=== PATIENT | female | born 1960 | race Caucasian/White ===

== ENCOUNTER 2018-07-24 17:28 | Emergency (ER) | END 2018-07-24 19:31 | disposition home or self-care (01) ==

== ENCOUNTER 2018-10-20 14:59 | Emergency (ER) | payer MEDICARE, OTHER ==
[~2018-10-20] VITALS: Ht 167.6 cm; Wt 56.5 kg
[~2018-10-20 14:59] MED LIST: CLOT30CR24 TOP; HC30CR25 TOP; MUPI22OI2 TOP
[2018-10-20 15:02] VITALS: BP 136/80; PULSE 107; RESP 18; Ht 167.6 cm; Wt 56.5 kg
--- NOTE | 2018-10-20 15:55 | ERD ---
ER Documentation Chief Complaint Chief Complaint cough, runny nose, fevers-cold like symptoms x 2 wks HPI 58-year-old female, sent to the emergency department, complaining of 2 weeks with persistent upper respiratory symptoms including cough, worse at night, runny nose, chest congestion, headache and general malaise. The patient has been taking owlv-jcf-wenjenf medications without improvement of the symptoms. ROS All systems reviewed and are negative except as per history of present illness. Medications Home Meds Active Scripts Guaifenesin-Codeine Phosphate* (Guaifenesin* AC Cough Syrup) 473 Ml Liquid, 5 ML PO Q4H PRN for COUGH, #60 ML Prov:DEREK PICHARDO MD 10/20/18 Hydrocortisone* Topical (Hydrocortisone* Topical) 2.5%-28.3 Gm Cream..g., 1 APPLIC TOP BID, #1 TUB Prov:CANDIS TEJADA PA-C 07/24/18 Mupirocin* (Bactroban*) 2% -22 Gram Oint...g., 1 APPLIC TOP BID for 7 Days, EA Prov:CANDIS TEJADA PA-C 07/24/18 Clotrimazole* (Clotrimazole* AF) 1% - 30 Gm Cream.gm., 1 APPLIC TOP BID for 7 Days, TUB Prov:CADNIS TEJADA PA-C 07/24/18 Allergies Allergies: Coded Allergies: No Known Allergy (Unverified , 07/24/18) PMhx/Soc History of Surgery: Yes (3stents heart) Hx Cardiac Disorders: Yes (2 heart attack ) Hx Alcohol Use: No Hx Substance Use: Yes Hx Tobacco Use: Yes Smoking Status: Current every day smoker FmHx Family History: coronary disease; No diabetes Physical Exam Vitals Vital Signs Date Temp Pulse Resp B/P (MAP) Pulse Ox O2 O2 Flow FiO2 Time Delivery Rate 10/20/18 98.0 107 18 136/80 96 15:02 (98) Physical Exam Const: No acute distress Head: Atraumatic Eyes: Normal Conjunctiva ENT: Erythematous oropharynx. Normal External Ears, Nose and Mouth. Neck: Full range of motion. No meningismus. Resp: Clear to auscultation bilaterally Cardio: Regular rate and rhythm, no murmurs Abd: Soft, non tender, non distended. Normal bowel sounds Skin: No petechiae or rashes Back: No midline or flank tenderness Ext: No cyanosis, or edema Neur: Awake and alert Psych: Normal Mood and Affect Procedures/MDM Differential diagnosis include but not limited to: Respiratory infection bacterial/viral/fungal. Asthma, pneumonitis, allergies, GERD. Less likely foreign body aspiration, cardiac related, aspiration pneumonia, malignancy. Physical examination and clinical presentation consistent most likely with viral syndrome. During the ED course the patient remained stable, no new complaints. Clinical impression discussed with the patient who agrees with management. The patient is stable to be treated outpatient and will be discharged home. antibiotics not indicated at this time. some side effects of prescribed medications (headache, rash, nausea, vomiting, diarrhea, drowsiness, hypertension, interactions with other medications) were reviewed. The patient was instructed to follow up with the primary care provider in the next 48h. If symptoms persist, worsen or new symptoms develop, then patient should return to the ED immediately. Disclaimer: Inadvertent spelling and grammatical errors are likely due to EHR/dictation software use and do not reflect on the overall quality of patient care. Also, please note that the electronic time recorded on this note does not necessarily reflect the actual time of the patient encounter. Departure Diagnosis: Primary Impression: Upper respiratory infection Condition: Stable Patient Instructions: Preventing Common Respiratory Infections Additional Instructions: Thank you very much for allowing us to participate in your care. Your health and safety is our top priority at [facility]. Call your primary care doctor TOMORROW for an appointment during the next 2-4 days and bring all the information and medications prescribed. Have prescriptions filled and follow precisely the directions on the label. If the symptoms get worse and your provider is unavailable, return to the Emergency Department immediately. DEREK PICHARDO MD Oct 20, 2018 15:55
[2018-10-20] MEDS ORDERED: GUAI473L22 PO (16:00)
== END 2018-10-20 16:09 | disposition home or self-care (01) ==
LOC: FTE 14:59
DX: J06.9 Acute upper respiratory infection, unspecified (principal); F17.210 Nicotine dependence, cigarettes, uncomplicated; Z98.61 Coronary angioplasty status
CPT/HCPCS: 99282

== ENCOUNTER 2019-05-27 08:57 | Emergency (ER) | payer MEDICARE, OTHER ==
[~2019-05-27] VITALS: Ht 167.6 cm; Wt 63.0 kg
[~2019-05-27 08:57] MED LIST changes: +ALBU8.5H8 INH; +AZIT250T PO; +GUAI120S25 PO; +GUAI473L22 PO; +IBUP-1542 PO; +PROM5SYR2 PO
[2019-05-27 08:59] VITALS: BP 145/70; PULSE 90; RESP 18; Ht 167.6 cm; Wt 63.0 kg
[2019-05-27] MEDS ORDERED: KETOROLAC 30 MG INJ IM STA (09:17)
--- NOTE | 2019-05-27 11:45 | ERD ---
ER Documentation Chief Complaint Chief Complaint RT HIP /GROIN PAIN RADIATING TO RT LEG X 4 MONTHS , COLD SYMPTOMS HPI 55-year-old female presented to ED for right hip pain radiating down her right leg. Patient states the symptoms are going on for 4 months. Patient denies any traumatic injury. Patient states that she also has a chronic cough but she is a heavy smoker. Patient has a history of high blood pressure MO. Patient denies chest pain or shortness of breath at this time. Patient states she has no allergies to medication and only med she takes is for high blood pressure. Patient rates the hip pain a 6 out of 10 and states it is worse when she is walking. ROS All systems reviewed and are negative except as per history of present illness. Medications Home Meds Active Scripts Albuterol Sulfate* (Proair HFA*) 8.5 Gm Hfa.aer.ad, 2 PUFF INH Q4, #1 INHALER Prov:JIMMY FERNÁNDEZ PA-C 05/27/19 Routyspdwbp-O-Mnsjwuecjj Hb* (Guaifenesin* DM Syrup) 120 Ml Syrup, 10 ML PO Q4H PRN for COUGH for 10 Days, ML Prov:JIMMY FERNÁNDEZ PA-C 05/27/19 Ibuprofen* (Motrin*) 600 Mg Tab, 600 MG PO Q6, #30 TAB Prov:JIMMY FERNÁNDEZ PA-C 05/27/19 Promethazine HCl/Codeine (Prometh-Codein 6.25-10 mg/5 ml) 5 Ml Syrup, 5 ML PO Q6, #6 OZ Prov:AKIN RIVAS PA-C 11/14/18 Azithromycin* (Zithromax*) 250 Mg Tablet, 250 MG PO .MIGUEL ÁNGEL DIRECTED, #6 TAB TAKE 500 MG (2 TABS) THE FIRST DAY THEN 250 MG (1 TAB) DAYS 2-5 Prov:AKIN RIVAS PA-C 11/14/18 Guaifenesin-Codeine Phosphate* (Guaifenesin* AC Cough Syrup) 473 Ml Liquid, 5 ML PO Q4H PRN for COUGH, #60 ML Prov:DEREK PICHARDO MD 10/20/18 Hydrocortisone* Topical (Hydrocortisone* Topical) 2.5%-28.3 Gm Cream..g., 1 AP PLIC TOP BID, #1 TUB Prov:CANDIS TEJADA PA-C 07/24/18 Mupirocin* (Bactroban*) 2% -22 Gram Oint...g., 1 APPLIC TOP BID for 7 Days, EA Prov:TERRELLCANDIS Harrison PA-C 07/24/18 Clotrimazole* (Clotrimazole* AF) 1% - 30 Gm Cream.gm., 1 APPLIC TOP BID for 7 Days, TUB Prov:CANDIS TEJADA PA-C 07/24/18 Allergies Allergies: Coded Allergies: No Known Allergy (Unverified , 07/24/18) PMhx/Soc History of Surgery: Yes (3stents heart) Hx Cardiac Disorders: Yes (2 heart attack ) Hx Alcohol Use: No Hx Substance Use: Yes Hx Tobacco Use: Yes Smoking Status: Current every day smoker FmHx Family History: No diabetes, No coronary disease, No other Physical Exam Vitals Vital Signs Date Temp Pulse Resp B/P (MAP) Pulse Ox O2 O2 Flow FiO2 Time Delivery Rate 05/27/19 98.2 90 18 145/70 97 08:59 (95) Physical Exam GENERAL: The patient is well-appearing, well-nourished, in no acute distress HEENT: Atraumatic. Conjunctivae are pink. Pupils equal, round, and reactive to light. There is no scleral icterus. Tympanic membranes clear bilaterally. Oropharynx clear. No nystagmus or photophobia. NECK: C-spine is soft and supple. There is no meningismus. There is no cervical lymphadenopathy. CHEST: Clear to auscultation bilaterally. There are no rales, wheezes or rhonchi. HEART: Regular rate and rhythm. No murmurs, clicks, rubs or gallops. ABDOMEN:Soft, nontender and nondistended. Good bowel sounds. No rebound or guarding. No gross peritonitis. No gross organomegaly or masses. No Masters sign or McBurney point tenderness. BACK: No midline or flank tenderness. EXTREMITIES: Equal pulses bilaterally. There is no peripheral clubbing, cyanosis or edema. No focal swelling or erythema. Patient has mild pain during passive range of motion in the right leg. Straight leg raise aggravates symptoms on the right side. Patient does have full range of motion. Grossly neurovascularly intact. Results 24 hrs Current Medications Medications Dose Sig/Desiree Start Time Status Last (Trade) Ordered Route PRN Stop Time Admin Dose Reason Admin Ketorolac 30 mg ONCE STAT 05/27/19 DC 05/27/19 Tromethamine IM 09:17 09:26 (Toradol) 05/27/19 09:18 Procedures/MDM ED course: The patient was stable throughout the ED course. The patient and/or family informed of laboratory and diagnostic imaging results throughout the ED course. Medications given in ER: Toradol Patient tolerated medication well with no adverse reactions. Patient reported improvement in pain. Medical decision makin-year-old female presented to ED for right hip pain x2 months. Patient's physical exam revealed positive straight leg raise on the right side provoke sciatica symptoms. Patient is not an IV drug user she is afebrile with vitals within normal limits. Patient was given Toradol injection and upon reevaluation states an improvement in symptoms. Patient has no chest pain shortness of breath and there is no skin lesions or punctures. Patient denies dysuria or abdominal pain. At this time I have low suspicion for epidural abscess, spinal fracture, dislocation, hip fracture, kidney stones, UTI, pyelonephritis, cauda equina syndrome. patient will be treated outpatient with Motrin and follow-up care with a primary care doctor. Advised patient to make an appointment today to get in this week. Advised patient if symptoms worsen return to ER immediately. Patient is agreement treatment plan all questions were answered upon discharge Prescription for home: Motrin I have discussed with the patient proper use and common side effects to expert with the medication . I advised the patient/family to speak with the pharmacist dispensing the medication to be advised of any potential drug interactions with other medication or supplements they may be taking. Discharge: At this time, patient is stable for discharge and outpatient management. I have instructed the patient to follow-up with his\her primary care physician in 1 to 2 days. I have discussed with the patient the possibility of needing to see a specialist for further work-up and imaging studies if symptoms persist. I have instructed the patient to promptly return to the ER for any new or worsening symptoms including increased pain, fever, nausea, vomiting, weakness or LOC. The patient and\or family expressed understanding of and agreement with this plan. All questions were answered. Home care instructions were provided. Disclaimer: Inadvertent spelling and grammatical errors are likely due to EHR\dictation software use and do not reflect on the overall quality of patient care. Also, please note that the electronic time recorded on the note does not necessarily reflect the actual time of the patient encounter. Departure Diagnosis: Primary Impression: Multiple complaints Additional Impressions: Back pain Back pain location: low back pain Chronicity: chronic Back pain laterality: right Sciatica presence: with sciatica Sciatica laterality: sciatica of right side Qualified Codes: M54.41 - Lumbago with sciatica, right side; G89.29 - Other chronic pain Cough Condition: Stable Patient Instructions: Back Pain (Acute Or Chronic), Cough, Chronic, Uncertain Cause, (Adult) Referrals: [facility] YOU HAVE RECEIVED A MEDICAL SCREENING EXAM AND THE RESULTS INDICATE THAT YOU DO NOT HAVE A CONDITION THAT REQUIRES URGENT TREATMENT IN THE EMERGENCY DEPARTMENT. FURTHER EVALUATION AND TREATMENT OF YOUR CONDITION CAN WAIT UNTIL YOU ARE SEEN IN YOUR DOCTORS OFFICE WITHIN THE NEXT 1-2 DAYS. IT IS YOUR RESPONSIBILITY TO MAKE AN APPOINTMENT FOR FOLOW-UP CARE. IF YOU HAVE A PRIMARY DOCTOR --you should call your primary doctor and schedule an appointment IF YOU DO NOT HAVE A PRIMARY DOCTOR YOU CAN CALL OUR PHYSICIAN REFERRAL HOTLINE AT IF YOU CAN NOT AFFORD TO SEE A PHYSICIAN YOU CAN CHOSE FROM THE FOLLOWING [facility] [address] [facility]. [facility] [address] [facility] [facility] [address] [facility] [facility] [address] [facility] [facility] [address] [facility]. [facility]. [address] [facility]. [facility] YOU HAVE RECEIVED A MEDICAL SCREENING EXAM AND THE RESULTS INDICATE THAT YOU DO NOT HAVE A CONDITION THAT REQUIRES URGENT TREATMENT IN THE EMERGENCY DEPARTMENT. FURTHER EVALUATION AND TREATMENT OF YOUR CONDITION CAN WAIT UNTIL YOU ARE SEEN IN YOUR DOCTORS OFFICE WITHIN THE NEXT 1-2 DAYS. IT IS YOUR RESPONSIBILITY TO MAKE AN APPOINTMENT FOR FOLOW-UP CARE. IF YOU HAVE A PRIMARY DOCTOR --you should call your primary doctor and schedule and appointment IF YOU DO NOT HAVE A PRIMARY DOCTOR YOU CAN CALL OUR PHYSICIAN REFERRAL HOTLINE AT . IF YOU CAN NOT AFFORD TO SEE A PHYSICIAN YOU CAN CHOSE FROM THE FOLLOWING [facility] INSTITUTIONS: [facility] [address] [place] [address] [facility] [address] [place] [address] [facility] [address] [place] [address] Additional Instructions: Call your primary care doctor TOMORROW for an appointment during the next 1-2 days.See the doctor sooner or return here if your condition worsens before your appointment time. JIMMY FERNÁNDEZ PA-C May 27, 2019 11:45
== END 2019-05-27 09:52 | disposition home or self-care (01) ==
LOC: FTE 08:57
DX: M54.41 Lumbago with sciatica, right side (principal); F17.210 Nicotine dependence, cigarettes, uncomplicated; R05 Cough; I25.2 Old myocardial infarction; I10 Essential (primary) hypertension; R10.30 Lower abdominal pain, unspecified
CPT/HCPCS: 96372; 99284; J1885